=== PATIENT | female | born 1945 | race Caucasian/White ===

== ENCOUNTER 2019-03-26 07:50 | Emergency (ER) | payer OTHER, MEDICARE ==
[~2019-03-26] VITALS: Ht 175.3 cm; Wt 90.7 kg
[2019-03-26 08:02] VITALS: BP_SYST 134
[2019-03-26] MEDS ORDERED: LIDOCAINE 1% 10 MG/ML, 20 ML MDV INJ ONE (08:30)
[2019-03-26] MEDS ORDERED: LIDOCAINE 1%, 20 ML MDV 20 ML ONE (08:33)
[2019-03-26 09:30] VITALS: BP_SYST 134
== END 2019-03-26 09:04 | disposition home or self-care (01) ==
LOC: SED 07:50
DX: S91.112A Laceration without foreign body of left great toe without damage to nail, initial encounter (principal); I48.91 Unspecified atrial fibrillation; I10 Essential (primary) hypertension; Z90.49 Acquired absence of other specified parts of digestive tract; Z90.710 Acquired absence of both cervix and uterus; W20.8XXA Other cause of strike by thrown, projected or falling object, initial encounter; Y93.89 Activity, other specified; Y92.89 Other specified places as the place of occurrence of the external cause; Y99.8 Other external cause status
CPT/HCPCS: 12001; 73660; 99283; J2001

== ENCOUNTER 2022-01-19 15:14 | Outpatient (CLI) | payer OTHER, MEDICARE ==
[2022-01-19 16:29] LABS: BASOPHILS % (AUTO) 0.7 % (0.0-2.0); EOSINOPHILS # (AUTO) 0.2 K/uL (0.0-0.4); EOSINOPHILS % (AUTO) 2.5 % (0.0-4.0); HEMATOCRIT 41.6 % (36-48); HEMOGLOBIN 14.3 g/dL (12.0-16.0); LYMPHOCYTES # (AUTO) 2.3 K/uL (1.0-5.5); LYMPHOCYTES % (AUTO) 35.7 % (20.5-51.5); MEAN CORPUSCULAR HEMOGLOBIN 32 pg (27-31); MEAN CORPUSCULAR HGB CONC 35 % (32-36); MEAN CORPUSCULAR VOLUME 91 fL (79.0-98.0); MONOCYTES # (AUTO) 0.6 K/uL (0.0-1.0); MONOCYTES % (AUTO) 8.7 % (1.7-9.3); NEUTROPHILS # (AUTO) 3.4 K/uL (1.8-7.7); NEUTROPHILS % (AUTO) 52.4 % (40.0-70.0); PLATELET COUNT (AUTO) 176 K/uL (130-430); RED BLOOD CELL COUNT(AUTO) 4.54 MIL/uL (4.2-6.2); RED CELL DISTRIBUTION WIDTH 13.6 % (9.0-15.0); WHITE BLOOD COUNT (AUTO) 6.4 K/uL (4.8-10.8)
[2022-01-19 16:43] LABS: URIC ACID 4.8 mg/dL (2.4-7.0)
[2022-01-19 17:35] LABS: ERYTHROCYTE SEDIMENTATION RATE 2 MM/HR (0-20)
== END 2022-01-19 18:59 | disposition home or self-care (01) ==
LOC: SLB 15:14
PROVIDERS: ATTEND Podiatrist
DX: M86.079 Acute hematogenous osteomyelitis, unspecified ankle and foot (principal)
CPT/HCPCS: 36415; 82947; 84550; 85025; 85651-TC